=== PATIENT | female | born 1935 | race Caucasian/White ===

== ENCOUNTER → 2017-12-15 | Outpatient (CLI) | payer MEDICARE, OTHER, SELFPAY | END | disposition home or self-care (01) | LOC: RAH 13:03 | PROVIDERS: ATTEND Physical Medicine & Rehabilitation | DX: M48.02 Spinal stenosis, cervical region (principal); M47.892 Other spondylosis, cervical region | CPT/HCPCS: 72141 ==

== ENCOUNTER → 2019-12-23 | Outpatient (CLI) | payer OTHER | END | disposition home or self-care (01) | LOC: RAH 13:00 | PROVIDERS: ATTEND Physical Medicine & Rehabilitation | DX: M19.011 Primary osteoarthritis, right shoulder (principal); M25.711 Osteophyte, right shoulder | CPT/HCPCS: 73030 ==

== ENCOUNTER 2020-07-08 11:00 | Inpatient (IN) | payer OTHER ==
[~2020-07-08] VITALS: Ht 160 cm; Wt 79.5 kg
[2020-07-22 12:01] LABS: BASOPHILS % (AUTO) 0.3 % (0.0-5.0); EOSINOPHILS % (AUTO) 2.5 % (0.0-8.0); HEMATOCRIT 43.7 % (36-48); LYMPHOCYTES % (AUTO) 17.8 % (21.0-51.0); MEAN CORPUSCULAR HEMOGLOBIN 33.6 pg (27.0-33.0); MEAN CORPUSCULAR HGB CONC 32.7 g/dL (32.0-36.0); MEAN CORPUSCULAR VOLUME 102.8 fL (79-99); MONOCYTES % (AUTO) 9.3 % (3.0-13.0); NEUTROPHILS % (AUTO) 69.5 % (40.0-77.0); PLATELET COUNT (AUTO) 277 K/uL (130-400); RED BLOOD CELL COUNT(AUTO) 4.25 MIL/uL (4.00-5.50); RED CELL DISTRIBUTION WIDTH 13.4 % (11.0-15.5); WHITE BLOOD COUNT (AUTO) 9.8 K/uL (4.8-10.8)
[2020-07-22 12:05] LABS: APPEARANCE,URINE Cloudy (CLEAR); BILIRUBIN,URINE Negative (NEGATIVE); COLOR,URINE Yellow (YELLOW); GLUCOSE, URINE (UA) Negative (NEGATIVE); KETONES,URINE Trace mg/dL (NEGATIVE); LEUKOCYTE ESTERASE ,URINE Large (NEGATIVE); NITRATE,URINE Negative (NEGATIVE); OCCULT BLOOD,URINE Small (NEGATIVE); PH,URINE 5.5 (5.0-8.0); PROTEIN,URINE Trace mg/dL (NEGATIVE)
[2020-07-22 12:15] LABS: INR 0.97 (0.85-1.15); PROTHROMBIN TIME 10.5 SEC (9.6-11.6)
[2020-07-22 12:39] LABS: BACTERIA,URINE Rare /HPF (None Seen); WBC,URINE 51-100 /HPF (0-1)
[2020-07-22 12:40] LABS: SQUAMOUS EPITHELIAL CELL,UR Few /HPF (0-2)
[2020-07-28] MEDS ORDERED: MOME17N NS (10:04)
[2020-07-28] MEDS ORDERED: BETA1TAB18 PO (10:04)
[2020-07-28] MEDS ORDERED: TRIA1TAB3 PO (10:04)
[2020-07-28] MEDS ORDERED: VITA-164 PO (10:04)
[2020-07-28] MEDS ORDERED: METO-409 PO (10:04)
[2020-07-28] MEDS ORDERED: LATA7.5D OP (10:04)
[2020-07-28] MEDS ORDERED: CALC-190 PO (10:04)
--- NOTE | 2020-07-28 15:00 | NUR ---
LABS POSITIVE MRSA NARES REPORTED TO DR MEJIA FOLLOW ADMISSION ORDERS, REPORTED ABNORMAL UA, CULT ORDERS RECEIVED FOR LEVOFLOXACIN IV IN HOLDING AREA;SEE ORDERS
[2020-07-28] MEDS: LEVOFLOXACIN 500 MG/D5W 100 ML 100 ML IV SCH (17:00)
[2020-07-29] VITALS (19 sets, daily range): BP systolic 126–147; BP diastolic 59–83
[2020-07-29] MEDS ORDERED: CEFAZOLIN SODIUM 1 GM VIAL IVP PRN (05:00)
[2020-07-29] MEDS ORDERED: LACTATED RINGERS 1000ML 1,000 ML IV ONE (08:53)
[2020-07-29] MEDS ORDERED: VANCOMYCIN HCL 1 GM VIAL ONE (13:53)
[2020-07-29] MEDS ORDERED: CEFAZOLIN SODIUM 1 GM VIAL ONE (13:53)
[2020-07-29] MEDS ORDERED: TRANEXAMIC ACID 1000MG/10ML ONE ×2 (13:54→17:42)
[2020-07-29] MEDS: VANCOMYCIN 1.5 GM in SODIUM CHLORIDE 0.9% 250 ML IV SCH ×2 (14:30→15:00)
[2020-07-29] MEDS ORDERED: ROCURONIUM 10MG/1ML SYR 10 MG/ML ML ONE (14:41)
[2020-07-29] MEDS ORDERED: SUCCINYLCHOLINE CHLORIDE 20 MG/ML 10 ML VIAL ONE (14:41)
[2020-07-29] MEDS ORDERED: PROPOFOL 10 MG/ML 20ML VIAL IV ONE (14:41)
[2020-07-29] MEDS ORDERED: KETAMINE 50MG/ML SYRINGE 50 MG/ML DISP.SYRIN IV ONE (14:42)
[2020-07-29] MEDS ORDERED: LIDOCAINE PF 2% 5ML ABBOJECT ONE (14:43)
[2020-07-29] MEDS ORDERED: ROPIVACAINE 0.5% 5MG/ML 30ML IJ ONE (14:55)
[2020-07-29] MEDS ORDERED: CEFAZOLIN SODIUM 1 GM VIAL IRRIG ONE (15:38)
[2020-07-29] MEDS: LEVOFLOXACIN 500 MG/D5W 100 ML 100 ML IV SCH (17:00)
[2020-07-29] MEDS ORDERED: GLYCOPYRROLATE 1 MG/5 ML SYRINGE ONE (17:24)
[2020-07-29] MEDS ORDERED: NEOSTIGMINE 5MG/5ML SYR IV ONE (17:25)
[2020-07-29] MEDS ORDERED: ONDANSETRON HCL 4 MG/2 ML VIAL ONE (17:25)
[2020-07-29] MEDS: SODIUM CHLORIDE 0.9% 1000ML 1,000 ML IV SCH (17:34)
[2020-07-29] MEDS ORDERED: POTASSIUM CHLORIDE 10% ELIXIR 20 MEQ/15 ML UDCUP PO PRN (17:45)
[2020-07-29] MEDS ORDERED: KETOROLAC TROMETHAMINE 15MG/ML IV PRN (17:45)
[2020-07-29] MEDS ORDERED: CALCIUM CARBONATE 500 MG TABLET PO PRN (17:45)
[2020-07-29] MEDS ORDERED: TEMAZEPAM 15 MG CAPSULE PO PRN (17:45)
[2020-07-29] MEDS ORDERED: DiphenhydrAMINE HCL 50 MG/ML VIAL IVP PRN (17:45)
[2020-07-29] MEDS ORDERED: TRAMADOL HCL 50 MG TABLET PO PRN (17:45)
[2020-07-29] MEDS ORDERED: POTASSIUM CHLORIDE 20MEQ/100ML 100 ML IV PRN (17:45)
[2020-07-29] MEDS ORDERED: FE FUMARATE/FA/MV, MIN COMB#15 1 TAB PO PRN (17:45)
[2020-07-29] MEDS ORDERED: POTASSIUM CHLORIDE 20 MEQ ERTAB PO PRN (17:45)
[2020-07-29] MEDS ORDERED: ONDANSETRON HCL 4 MG/2 ML VIAL IVP PRN (17:45)
[2020-07-29] MEDS ORDERED: LIDOCAINE HCL-MPF 1% 2ML VIAL IV PRN (17:45)
[2020-07-29] MEDS: ACETAMINOPHEN EXTRA STRENGTH 500 MG TABLET PO SCH (17:45)
[2020-07-29] MEDS ORDERED: OXYCODONE HCL 5 MG TAB PO PRN ×2 (17:45)
[2020-07-29] MEDS ORDERED: NON-FORMULARY MEDICATION 1 EACH (Metoprolol Succinate 100 MG) PO SCH (21:00)
[2020-07-29] MEDS: CELECOXIB 200 MG CAP PO SCH (22:00)
[2020-07-29] MEDS: ASPIRIN 81MG TAB.CHEW PO SCH (22:01)
[2020-07-29] MEDS: CEFAZOLIN SODIUM 1 GM VIAL IVP SCH (23:10)
[2020-07-29] MEDS: VANCOMYCIN 1GM+NS 250ML 250 ML IV SCH (23:12)
[2020-07-30 00:15] VITALS: BP 132/89
[2020-07-30] MEDS: ACETAMINOPHEN EXTRA STRENGTH 500 MG TABLET PO SCH ×3 (02:12→17:08)
[2020-07-30 04:01] LABS: HEMATOCRIT 32.1 % (36-48); MEAN CORPUSCULAR HEMOGLOBIN 33.8 pg (27.0-33.0); MEAN CORPUSCULAR VOLUME 102.2 fL (79-99); RED BLOOD CELL COUNT(AUTO) 3.14 MIL/uL (4.00-5.50); RED CELL DISTRIBUTION WIDTH 13.2 % (11.0-15.5); WHITE BLOOD COUNT (AUTO) 7.3 K/uL (4.8-10.8)
[2020-07-30 04:10] LABS: CREATININE 0.9 mg/dL (0.5-1.5); POTASSIUM 3.3 mmol/L (3.5-5.1)
[2020-07-30 05:28] VITALS: BP 152/84
[2020-07-30] MEDS: CEFAZOLIN SODIUM 1 GM VIAL IVP SCH (06:46)
[2020-07-30] MEDS: SODIUM CHLORIDE 0.9% 1000ML 1,000 ML IV SCH ×2 (06:51→09:11)
[2020-07-30 08:00] VITALS: BP 123/69
[2020-07-30] MEDS ORDERED: NASONEX PO SCH (09:00)
[2020-07-30] MEDS ORDERED: NON-FORMULARY MEDICATION 1 EACH (Metoprolol Succinate 100 MG) PO SCH (09:00)
[2020-07-30] MEDS: **HM** OCUVITE PO SCH (09:00)
[2020-07-30] MEDS: VITAMIN E 400 UNIT CAPSULE PO SCH (09:07)
[2020-07-30] MEDS: POLYETHYLENE GLYCOL 3350 17 GM POWD.PACK PO SCH (09:07)
[2020-07-30] MEDS: TRIAMTEREN/HCTZ 37.5/25 MG 1 TAB TAB PO SCH (09:09)
[2020-07-30] MEDS: FAMOTIDINE 20MG TAB 20 MG TAB PO SCH (09:09)
[2020-07-30] MEDS: ASPIRIN 81MG TAB.CHEW PO SCH ×2 (09:09→22:38)
[2020-07-30] MEDS: METOPROLOL SUCCINATE 50 MG TAB.SR.24H PO SCH (09:09)
[2020-07-30] MEDS: CALCIUM 600 + VITAMIN D 400 TABLET PO SCH (09:09)
[2020-07-30] MEDS: CELECOXIB 200 MG CAP PO SCH ×2 (09:09→22:38)
[2020-07-30] MEDS: LATANOPROST 2.5 ML DROPS OU SCH (09:10)
[2020-07-30] MEDS: VANCOMYCIN 1GM+NS 250ML 250 ML IV SCH (09:10)
--- NOTE | 2020-07-30 10:05 | NUR ---
DCP CM met with pt discussed dc plans. Pt is independent prior to surgery, lives at [facility]. Pt has a walker, cane, built in chair in the shower. Pt vebalized her daughter from [place] will be staying with her this weekend, and her grandaughter will be staying with her daily as she is doing her school online. Pt declined short term placement, prefer to go back to [facility], verbalized facility has someone that check on them daily also. And if needing someone at night she can coordinate w/family members to assist her. Pt agreeable for HH, NIKKI signed for [facility]. DC plan back to [facility], facility has van available for transport if needed. CM to cont to follow up. Addendum: 07/30/20 at 1652 by CARLA FRAGA LVN CM Amended: Links added.
--- NOTE | 2020-07-30 10:06 | NUR ---
CM Note: [facility] pending approval CM faxed order and clinicals to [facility] , confirmation received. Spoke to Gala w/[facility] , aware dcp once pt has approval, possibly tomorrow per pt request. Pt pending approval at this time. Dr Sheffield updated. Primary nurse aware. CM to cont to follow up.
[2020-07-30 11:45] VITALS: BP 119/57
[2020-07-30 16:00] VITALS: BP 129/58
[2020-07-30 20:09] VITALS: BP 109/62
[2020-07-31 00:19] VITALS: BP 147/70
[2020-07-31] MEDS: ACETAMINOPHEN EXTRA STRENGTH 500 MG TABLET PO SCH ×3 (01:14→17:45)
[2020-07-31 04:00] VITALS: BP 112/74
[2020-07-31 08:27] VITALS: BP 133/51
[2020-07-31] MEDS: **HM** OCUVITE PO SCH (09:00)
[2020-07-31] MEDS: TRIAMTEREN/HCTZ 37.5/25 MG 1 TAB TAB PO SCH (09:00)
[2020-07-31] MEDS: ASPIRIN 81MG TAB.CHEW PO SCH (10:11)
[2020-07-31] MEDS: CALCIUM 600 + VITAMIN D 400 TABLET PO SCH (10:11)
[2020-07-31] MEDS: METOPROLOL SUCCINATE 50 MG TAB.SR.24H PO SCH (10:11)
[2020-07-31] MEDS: FAMOTIDINE 20MG TAB 20 MG TAB PO SCH (10:11)
[2020-07-31] MEDS: VITAMIN E 400 UNIT CAPSULE PO SCH (10:11)
[2020-07-31] MEDS: CELECOXIB 200 MG CAP PO SCH (10:12)
[2020-07-31] MEDS: LATANOPROST 2.5 ML DROPS OU SCH (10:18)
--- NOTE | 2020-07-31 11:00 | NUR ---
CM Note: [facility] approval CM spoke to Gala galaviz/JOHN HERNANDEZ, pt has approval. Pt safe to DC once MD clear. Primary nurse aware to call report once md clear. Primary nurse to call [facility] for transport van once pt ready to DC. CM to cont to follow up.
[2020-07-31 11:36] VITALS: BP 100/42
[2020-07-31] MEDS: POLYETHYLENE GLYCOL 3350 17 GM POWD.PACK PO SCH (14:43)
[2020-07-31] MEDS ORDERED: ACET-2743 PO (16:28)
[2020-07-31] MEDS ORDERED: ASPI-1005 PO (16:28)
[2020-07-31] MEDS ORDERED: IBUP-1552 PO (16:28)
--- NOTE | 2020-07-31 17:45 | NUR ---
DRESSING CHANGE AND HEMOVAC REMOVAL HEMOVAC REMOVED FROM LEFT SHOULDER, NO RESISTANCE NOTED UPON DRAIN REMOVAL. PERFORMED LEFT SHOULDER INCISION DRESSING CHANGE. LEFT SHOULDER INCISION APPROXIMATED AND ASYMPTOMATIC. COVERED WITH NONADHERENT GAUZE AND SECURED WITH TEGADERM. REMOVED 22G IV FROM LEFT HAND, CATHETER TIP INTACT.
[2020-08-01] MEDS ORDERED: BISACODYL 10 MG SUPP.RECT RC PRN (17:45)
== END 2020-07-31 19:12 | disposition home health service (06) | DRG 483 ==
LOC: EDSTATUS 07-22 09:00 → DAHIP 07-29 08:29 → 3AH 07-29 18:21
PROVIDERS: ADMIT Orthopaedic Surgery; ATTEND Orthopaedic Surgery
PROC: 0RRJ0JZ Replacement of Right Shoulder Joint with Synthetic Substitute, Open Approach (ICD-10-PCS; principal; 2020-07-29 14:39)
PROC: 3E0T3BZ Introduction of Anesthetic Agent into Peripheral Nerves and Plexi, Percutaneous Approach (ICD-10-PCS; 2020-07-29 14:39)
DX: M19.011 Primary osteoarthritis, right shoulder (principal); R71.0 Precipitous drop in hematocrit; G89.29 Other chronic pain; E11.9 Type 2 diabetes mellitus without complications; Z96.652 Presence of left artificial knee joint; I10 Essential (primary) hypertension; Z20.828 Contact with and (suspected) exposure to other viral communicable diseases; Z85.42 Personal history of malignant neoplasm of other parts of uterus; Z98.49 Cataract extraction status, unspecified eye; Z90.710 Acquired absence of both cervix and uterus; Z88.5 Allergy status to narcotic agent; Z80.9 Family history of malignant neoplasm, unspecified
CPT/HCPCS: 36415; 73030; 80048; 81001; 82948; 85025; 85027; 85610; 87077; 87088; 87186; 87641; 97039; A4565; C1776; G0378; J0330; J0690; J1956; J2001; J2405; J2704; J2710; J2795; J3370; J3490; J7030; J7050; J7120; U0003

== ENCOUNTER 2024-01-24 12:56 | Emergency (ER) | payer MEDICARE, OTHER ==
[~2024-01-24] VITALS: Ht 160 cm; Wt 71.2 kg
[~2024-01-24 12:56] MED LIST: ACET-2743 PO; ASPI-1005 PO; BETA1TAB18 PO; CALC-190 PO; IBUP-1552 PO; LATA7.5D OP; METO-409 PO; MOME17SP4 NS; TRIA1TAB3 PO; VITA-348 PO
[2024-01-24 13:45] LABS: BASOPHILS # (AUTO) 0.09 K/uL (0.00-0.20); EOSINOPHILS # (AUTO) 0.23 K/uL (0.00-0.70); EOSINOPHILS % (AUTO) 2.5 % (0.0-8.0); HEMATOCRIT 39.1 % (36-48); IMMATURE GRANULOCYTE ABSOLUTE 0.02 K/uL (0-1); LYMPHOCYTES # (AUTO) 1.6 K/uL (1.0-4.8); LYMPHOCYTES % (AUTO) 17.6 % (21.0-51.0); MEAN CORPUSCULAR HEMOGLOBIN 31.9 pg (27.0-33.0); MEAN CORPUSCULAR HGB CONC 34.5 g/dL (32.0-36.0); MEAN CORPUSCULAR VOLUME 92.4 fL (79-99); MONOCYTES # (AUTO) 0.7 K/uL (0.1-1.0); MONOCYTES % (AUTO) 7.8 % (3.0-13.0); NEUTROPHILS # (AUTO) 6.6 K/uL (1.8-7.7); NEUTROPHILS % (AUTO) 70.9 % (40.0-77.0); PLATELET COUNT (AUTO) 284 K/uL (130-400); RED BLOOD CELL COUNT(AUTO) 4.23 MIL/uL (4.00-5.50); RED CELL DISTRIBUTION WIDTH 12.8 % (11.0-15.5); WHITE BLOOD COUNT (AUTO) 9.2 K/uL (4.8-10.8)
[2024-01-24] MEDS: SOLU-MEDROL 125MG VIAL IVP ONE (13:48)
[2024-01-24] MEDS: 0.9%NACL 1000ML 1,000 ML IV ONE (13:49)
[2024-01-24 13:55] VITALS: BP 157/67; PULSE 79; RESP 16; O2SAT 98
[2024-01-24 14:02] LABS: ALBUMIN 3.4 g/dL (3.5-5.0); BILIRUBIN,TOTAL 0.7 mg/dL (0.2-1.0); CREATININE 0.9 mg/dL (0.5-1.5); POTASSIUM 3.7 mmol/L (3.5-5.1); TOTAL PROTEIN, SERUM 7.1 g/dL (6.0-8.3)
[2024-01-24 14:22] LABS: APPEARANCE,URINE CLEAR (CLEAR); BILIRUBIN,URINE NEGATIVE (NEGATIVE); COLOR,URINE COLORLESS (YELLOW); GLUCOSE, URINE (UA) NEGATIVE (NEGATIVE); KETONES,URINE NEGATIVE (NEGATIVE); LEUKOCYTE ESTERASE ,URINE 250 Leu/uL (NEGATIVE); NITRATE,URINE NEGATIVE (NEGATIVE); OCCULT BLOOD,URINE NEGATIVE (NEGATIVE); PROTEIN,URINE NEGATIVE (NEGATIVE); UROBILINOGEN,URINE 0.2 mg/dL (0.2-1.0)
[2024-01-24 14:30] LABS: ADD UA MICROSCOPIC YES
[2024-01-24 14:34] LABS: BACTERIA,URINE FEW /HPF (None Seen); SQUAMOUS EPITHELIAL CELL,UR RARE /HPF (0-2); WBC,URINE 26-50 /HPF (0-1)
[2024-01-24] MEDS: CEFTRIAXONE 1G VIAL IVPB ONE (15:00)
[2024-01-24] MEDS: MECLIZINE HCL 25 MG TABLET PO ONE (15:00)
[2024-01-24] MEDS ORDERED: MECL-226 PO (15:40)
[2024-01-24] MEDS ORDERED: AMOX1TAB16 PO (15:40)
[2024-01-24] MEDS: DEXAMETHASONE SOD PHOSPHATE 4 MG/ML 1ML VIAL IVP ONE (15:51)
== END 2024-01-24 16:32 | disposition home or self-care (01) ==
LOC: EDH 12:56
DX: H83.01 Labyrinthitis, right ear (principal); H81.10 Benign paroxysmal vertigo, unspecified ear; N30.00 Acute cystitis without hematuria; R94.31 Abnormal electrocardiogram [ECG] [EKG]; I10 Essential (primary) hypertension; Z79.82 Long term (current) use of aspirin; Z79.899 Other long term (current) drug therapy; Z90.710 Acquired absence of both cervix and uterus; Z98.890 Other specified postprocedural states; Z88.5 Allergy status to narcotic agent
CPT/HCPCS: 99285; 96374; 96361; 70450; 96375; 84484; 80053; 85025; 87077; 87088; 87186; 81001; 36415; 93005; J1100; J7030; J2930; J0696

== ENCOUNTER → 2024-09-10 | Outpatient (CLI) | payer MEDICARE ==
[~2024-09-10] MED LIST changes: +AMOX1TAB16 PO; +MECL-226 PO
== END | disposition home or self-care (01) ==
LOC: LAB 13:57
PROVIDERS: ATTEND Internal Medicine Cardiovascular Disease
DX: I73.9 Peripheral vascular disease, unspecified (principal); I87.1 Compression of vein; I87.2 Venous insufficiency (chronic) (peripheral)
CPT/HCPCS: 93925; 93970

== ENCOUNTER → 2024-10-15 | Outpatient (CLI) | payer MEDICARE ==
[2024-10-15 16:46] LABS: BASOPHILS # (AUTO) 0.04 K/uL (0.00-0.20); BASOPHILS % (AUTO) 0.3 % (0.0-5.0); EOSINOPHILS # (AUTO) 0.03 K/uL (0.00-0.70); EOSINOPHILS % (AUTO) 0.2 % (0.0-8.0); HEMATOCRIT 38.1 % (36-48); IMMATURE GRANULOCYTE ABSOLUTE 0.09 K/uL (0-1); LYMPHOCYTES # (AUTO) 0.6 K/uL (1.0-4.8); MEAN CORPUSCULAR HEMOGLOBIN 31.5 pg (27.0-33.0); MEAN CORPUSCULAR HGB CONC 32.5 g/dL (32.0-36.0); MEAN CORPUSCULAR VOLUME 96.7 fL (79-99); MONOCYTES # (AUTO) 0.9 K/uL (0.1-1.0); MONOCYTES % (AUTO) 6.5 % (3.0-13.0); NEUTROPHILS # (AUTO) 12.5 K/uL (1.8-7.7); NEUTROPHILS % (AUTO) 88.4 % (40.0-77.0); PLATELET COUNT (AUTO) 264 K/uL (130-400); RED BLOOD CELL COUNT(AUTO) 3.94 MIL/uL (4.00-5.50); RED CELL DISTRIBUTION WIDTH 13.4 % (11.0-15.5); WHITE BLOOD COUNT (AUTO) 14.1 K/uL (4.8-10.8)
[2024-10-15 16:55] LABS: INR 1.15 (0.85-1.15); PROTHROMBIN TIME 12.3 SEC (9.6-11.6)
[2024-10-15 17:14] LABS: ALBUMIN 3.2 g/dL (3.5-5.0); BILIRUBIN,TOTAL 1.4 mg/dL (0.2-1.0); CREATININE 1.2 mg/dL (0.5-1.0); POTASSIUM 3.5 mmol/L (3.5-5.1); THYROID STIMULATING HORMONE 1.01 uIU/mL (0.36-3.74); TOTAL PROTEIN, SERUM 7.1 g/dL (6.0-8.3)
== END | disposition home or self-care (01) ==
LOC: LAB 12:56
PROVIDERS: ATTEND Internal Medicine Cardiovascular Disease
DX: I34.0 Nonrheumatic mitral (valve) insufficiency (principal); I48.0 Paroxysmal atrial fibrillation
CPT/HCPCS: 36415; 80053; 83880; 84443; 84484; 85025; 85610

== ENCOUNTER → 2024-10-25 | Outpatient (CLI) | payer MEDICARE | END | disposition home or self-care (01) | LOC: RAH 14:15 | PROVIDERS: ATTEND Internal Medicine Cardiovascular Disease | DX: I48.0 Paroxysmal atrial fibrillation (principal) | CPT/HCPCS: 93306 ==

== ENCOUNTER → 2024-12-05 | Outpatient (CLI) | payer MEDICARE ==
[2024-12-05 16:19] LABS: CREATININE 1.4 mg/dL (0.5-1.0); POTASSIUM 4.2 mmol/L (3.5-5.1)
== END | disposition home or self-care (01) ==
LOC: LAB 14:45
PROVIDERS: ATTEND Internal Medicine Cardiovascular Disease
DX: I48.0 Paroxysmal atrial fibrillation (principal)
CPT/HCPCS: 36415; 80048